=== PATIENT | female | born 2005 | race Caucasian/White ===

== ENCOUNTER → 2023-03-26 | Outpatient (CLI) | payer BC ==
--- NOTE | 2023-03-26 13:02 | US ---
EXAMINATION TYPE: US pelvic complete DATE OF EXAM: 03/26/2023 COMPARISON: Head CT 01/18/2023 CLINICAL INDICATION: Female, 17 years old with history of N83.202 UNSPECIFIED OVARIAN CYST, LEFT SIDE ; 01/18/2023 PET scan showed Lt ovarian cyst, no symptoms today TECHNIQUE: TA. Transabdominal sonographic images of the pelvis were acquired Date of LMP: middle february EXAM MEASUREMENTS: Uterus: 6.6 x 4.8 x 3.6 cm Endometrial Stripe: 0.7 cm Right Ovary: 3.1 x 1.8 x 2.0 cm Left Ovary: 2.9 x 3.1 x 2.3 cm 1. Uterus: Anteverted wnl 2. Endometrium: wnl 3. Right Ovary: subcentimeter follicles seen, wnl 4. Left Ovary: subcentimeter follicles seen, wnl 5. Bilateral Adnexa: wnl 6. Posterior cul-de-sac: wnl Unremarkable anteverted uterus. Endometrium is within normal limits. Both ovaries appear unremarkable with subcentimeter follicles demonstrated. No ovarian cyst identified corresponding to PET/CT. No fr ee fluid. IMPRESSION: 1. No acute pelvic process. 2. No ovarian cyst identified corresponding to PET/CT.
== END | disposition home or self-care (01) ==
LOC: RADUSWWP 12:36
PROVIDERS: ATTEND Internal Medicine
DX: N83.202 Unspecified ovarian cyst, left side (principal)
CPT/HCPCS: 76856